=== PATIENT | male | born 1955 | race Caucasian/White ===

== ENCOUNTER 2022-11-18 17:16 | Inpatient (IN) | payer MEDICARE ==
[2022-11-18] MEDS ORDERED: Vancomycin 1 GM/200 ML (FROZEN) BAG ONE (17:32)
[2022-11-18] MEDS ORDERED: Ampicillin/Sulbactam 3 GM in Sodium Chloride 0.9% 100 ML IVPB SCH (17:45)
[2022-11-18 18:02] LABS: #Eosinphils 0.3 thou/uL (0.0-0.7); #Lymphocytes 1.3 thou/uL (1.20-3.40); #Monocytes 0.6 thou/uL (0.11-0.59); %Basophils 0.5 % (0.0-1.0); %Eosinophils 3.4 % (0.0-10.0); %Lymphocytes 13.8 % (21.0-51.0); %Monocytes 6.9 % (0.0-10.0); %Neutrophils 75.5 % (42.0-75.0); Hemoglobin 12.7 g/dL (14.0-18.0); Mean Corpuscular HGB CONC 33.6 g/dL (32.0-36.0); Mean Corpuscular Hemoglobin 31.4 pg (27.0-31.0); Mean Corpuscular Volume 93.6 fl (78.0-98.0); Mean Platelet Volume 7.8 fL (7.4-10.4); Platelet Count 251 10x3/uL (130-400); RBC Distribution Width 11.6 % (11.5-14.5); Red Blood Cell (RBC) Count 4.05 mill/uL (4.70-6.10); White Blood Cell (WBC) Count 9.3 10x3/uL (4.8-10.8)
[2022-11-18 18:24] LABS: ALT (SGPT) 11 U/L (8-55); AST (SGOT) 12 U/L (5-34); Albumin 3.8 g/dL (3.4-4.8); Alkaline Phosphatase 75 U/L (40-110); Anion Gap 13 mmol/L (10-20); BUN (Urea Nitrogen) 18 mg/dL (8.4-25.7); Bilirubin, Total 0.6 mg/dL (0.2-1.2); CK (CPK) 183 U/L (30-200); CRP (Inflammatory) 2.41 mg/dL (= or < 0.5); Calc. Creatinine Clearance 0 mL/min (70-130); Calcium 9.4 mg/dL (7.8-10.44); Carbon Dioxide 25 mmol/L (23-31); Chloride 102 mmol/L (98-107); Estimated GFR 61; Globulin 3.2 g/dL (2.4-3.5); Glucose 325 mg/dL (80-115); Potassium 4.3 mmol/L (3.5-5.1); Sodium 136 mmol/L (136-145)
[2022-11-18] MEDS ORDERED: Cefepime 2 GM VIAL ONE (18:45)
[2022-11-18 19:16] LABS: SARS-CoV-2 NAA Rapid Test Not Detected (NotDetected)
[2022-11-18] MEDS ORDERED: Dextrose 5% in Water 1,000 ML IV PRN (19:25)
[2022-11-18] MEDS ORDERED: Ondansetron PF 4 MG/2 ML Vial IVP PRN (19:25)
[2022-11-18] MEDS ORDERED: HYDROcodone/Acetaminophen 5/325 mg Tablet PO PRN (19:25)
[2022-11-18] MEDS ORDERED: Senokot S 8.6-50 MG TAB PO PRN (19:25)
[2022-11-18] MEDS ORDERED: Acetaminophen 325 MG TAB PO PRN (19:25)
[2022-11-18] MEDS ORDERED: HumaLOG 300 UNITS/3 ML VIAL SC PRN (19:25)
[2022-11-18] MEDS ORDERED: Dextrose 50% Abboject 50 ML SYRINGE SLOW IVP PRN (19:25)
[2022-11-18] MEDS ORDERED: Ondansetron ODT 4 MG TAB PO PRN (19:25)
[2022-11-18 20:39] VITALS: BMI 28.6
[2022-11-18] MEDS ORDERED: Vancomycin 1 GM in Premix Bag 1 BAG IVPB SCH (22:00)
[2022-11-19 07:48] LABS: #Eosinphils 0.3 thou/uL (0.0-0.7); #Lymphocytes 1.4 thou/uL (1.20-3.40); #Monocytes 0.7 thou/uL (0.11-0.59); #Neutrophils 6.1 thou/uL (1.40-6.50); %Basophils 0.4 % (0.0-1.0); %Lymphocytes 16.2 % (21.0-51.0); %Monocytes 8.6 % (0.0-10.0); %Neutrophils 70.9 % (42.0-75.0); Hemoglobin 12.1 g/dL (14.0-18.0); Mean Corpuscular HGB CONC 33.4 g/dL (32.0-36.0); Mean Corpuscular Hemoglobin 31.8 pg (27.0-31.0); Mean Corpuscular Volume 95.2 fl (78.0-98.0); Mean Platelet Volume 7.6 fL (7.4-10.4); Platelet Count 273 10x3/uL (130-400); RBC Distribution Width 11.6 % (11.5-14.5); Red Blood Cell (RBC) Count 3.79 mill/uL (4.70-6.10); White Blood Cell (WBC) Count 8.6 10x3/uL (4.8-10.8)
[2022-11-19 08:03] LABS: Anion Gap 15 mmol/L (10-20); BUN (Urea Nitrogen) 16 mg/dL (8.4-25.7); Calc. Creatinine Clearance 97 mL/min (70-130); Calcium 9.2 mg/dL (7.8-10.44); Carbon Dioxide 23 mmol/L (23-31); Chloride 106 mmol/L (98-107); Estimated GFR 78; Glucose 114 mg/dL (80-115); Potassium 4.1 mmol/L (3.5-5.1); Sodium 140 mmol/L (136-145)
[2022-11-19] MEDS: Clopidogrel Bisulfate 75 MG TAB PO SCH (08:35)
[2022-11-19] MEDS: Atorvastatin Calcium 40 MG TAB PO SCH (08:35)
[2022-11-19] MEDS: Vancomycin 1.5 GRAM/300 ML BAG 1.5 GM in Premix Bag 1 BAG IVPB SCH ×2 (08:35→20:25)
[2022-11-19] MEDS: Glimepiride 2 MG TAB PO SCH (08:35)
[2022-11-19] MEDS: Tamsulosin HCl 0.4 MG CAP PO SCH (08:35)
[2022-11-19] MEDS: Carvedilol 25 MG TAB PO SCH (08:36)
[2022-11-19] MEDS: Ramipril 5 MG CAP PO SCH (08:36)
[2022-11-19] MEDS: HumaLOG 300 UNITS/3 ML VIAL SC PRN ×2 (12:43→16:44)
[2022-11-19] MEDS ORDERED: Glimepiride 4 MG TAB PO SCH (17:00)
[2022-11-20 07:57] VITALS: TEMP 98.4
[2022-11-20] MEDS: Atorvastatin Calcium 40 MG TAB PO SCH (08:49)
[2022-11-20] MEDS: Clopidogrel Bisulfate 75 MG TAB PO SCH (08:49)
[2022-11-20] MEDS: Carvedilol 25 MG TAB PO SCH (08:49)
[2022-11-20] MEDS: Tamsulosin HCl 0.4 MG CAP PO SCH (08:49)
[2022-11-20] MEDS: Ramipril 5 MG CAP PO SCH (08:49)
[2022-11-20] MEDS: Glimepiride 2 MG TAB PO SCH (08:49)
[2022-11-20] MEDS: Vancomycin 1.5 GRAM/300 ML BAG 1.5 GM in Premix Bag 1 BAG IVPB SCH (08:50)
[2022-11-20 08:51] VITALS: BP 133/75
[2022-11-20 09:05] LABS: Vancomycin, Trough 21.4 ug/mL
[2022-11-20] MEDS ORDERED: Vancomycin 1 GM in Premix Bag 1 BAG IVPB SCH (21:00)
== END 2022-11-20 12:09 | disposition home or self-care (01) | DRG 603 ==
LOC: ERS 17:16 → T4-B 18:46
PROVIDERS: ADMIT Internal Medicine; ATTEND Internal Medicine
DX: L03.115 Cellulitis of right lower limb (principal); Z20.822 Contact with and (suspected) exposure to COVID-19; I48.0 Paroxysmal atrial fibrillation; E78.5 Hyperlipidemia, unspecified; I10 Essential (primary) hypertension; I25.10 Atherosclerotic heart disease of native coronary artery without angina pectoris; Z95.5 Presence of coronary angioplasty implant and graft; Z88.2 Allergy status to sulfonamides; Z79.899 Other long term (current) drug therapy; Z79.84 Long term (current) use of oral hypoglycemic drugs; Z86.010 Personal history of colon polyps; Z95.810 Presence of automatic (implantable) cardiac defibrillator
CPT/HCPCS: 36415; 36416; 80048; 80053; 80202; 82550; 83605; 85025; 86140; 87040; 93005; 96365; 96367; J0295; J0692; J1815; J3370; J3370-JW; J3490; U0002